=== PATIENT | male | born 1975 | race Two or more races ===

== ENCOUNTER 2021-01-02 18:34 | Inpatient (IN) | payer OTHER ==
[~2021-01-02] VITALS: Ht 167.6 cm; Wt 75.7 kg
[2021-01-02] MEDS ORDERED: ACETAMINOPHEN 325 MG TABLET PO PRN (19:45)
[2021-01-02] MEDS ORDERED: DOCU-275 PO (20:25)
[2021-01-02] MEDS ORDERED: LEVE500T53 PO (20:25)
[2021-01-02] MEDS ORDERED: METH-659 PO (20:25)
[2021-01-02 22:37] LABS: BASOPHILS % (AUTO) 0.9 % (0.0-2.0); EOSINOPHILS % (AUTO) 2.2 % (1.0-6.0); HEMATOCRIT 45.5 % (41-53); HEMOGLOBIN 15.2 g/dL (13.5-17.5); LYMPHOCYTES # (AUTO) 1.7 K/uL (1.0-4.8); MEAN CORPUSCULAR HEMOGLOBIN 27.4 pg (26.0-34.0); MEAN CORPUSCULAR HGB CONC 33.5 G/dL (31.0-37.0); MEAN CORPUSCULAR VOLUME 82 fL (80-100); MONOCYTES # (AUTO) 0.9 K/uL (0.1-1.0); MONOCYTES % (AUTO) 7.6 % (2.0-9.0); NEUTROPHILS # (AUTO) 8.4 K/uL (1.8-7.7); NEUTROPHILS % (AUTO) 74.3 % (40.0-70.0); PLATELET COUNT (AUTO) 514 K/uL (150-450); RED BLOOD CELL COUNT(AUTO) 5.56 MIL/uL (4.50-5.90); RED CELL DISTRIBUTION WIDTH 14.8 % (11.5-14.5)
[2021-01-02 22:45] LABS: ANION GAP 10 mmol/L (8-16); CALCIUM, TOTAL 9.7 mg/dL (8.8-10.5); CARBON DIOXIDE 29 mmol/L (22-29); CHLORIDE 97 mmol/L (98-107); CREATININE 0.92 mg/dL (0.60-1.30); GLOMERULAR FILTR. RATE CALC > 60 mL/min (>60); GLUCOSE,RANDOM 114 mg/dL (70-110); POTASSIUM 3.8 mmol/L (3.5-5.1); SODIUM SERUM 136 mmol/L (136-145); UREA NITROGEN, BLOOD 8 mg/dL (7-18)
[2021-01-02 22:49] LABS: D-DIMER 3.2 mg/L FEU (0.00-0.50)
[2021-01-02 22:51] LABS: ALANINE AMINOTRANSFERASE 128 U/L (12-78); ALKALINE PHOSPHATASE 167 U/L (46-116); ASPARTATE AMINOTRANSFERASE 77 U/L (15-37); BILIRUBIN,TOTAL 0.8 mg/dL (0.1-1.0)
[2021-01-02] MEDS ORDERED: ONDANSETRON HCL 4 MG/2 ML VIAL IVP PRN (23:30)
[2021-01-02] MEDS ORDERED: HEPARIN SODIUM 25000 UNITS/D5W 250 ML IV PRN (23:30)
[2021-01-02] MEDS ORDERED: HEPARIN SODIUM,PORCINE 5,000 UNITS/ML VIAL IVP PRN ×2 (23:30)
[2021-01-02] MEDS ORDERED: BENZONATATE 100 MG CAPSULE PO PRN (23:30)
[2021-01-02 23:44] LABS: PROTHROMBIN TIME 10.6 SEC (9.4-11.6)
[2021-01-03] VITALS: BP 127/80
[2021-01-03 00:26] LABS: BASOPHILS % (AUTO) 0.9 % (0.0-2.0); EOSINOPHILS % (AUTO) 3.2 % (1.0-6.0); HEMATOCRIT 44.1 % (41-53); HEMOGLOBIN 14.8 g/dL (13.5-17.5); LYMPHOCYTES # (AUTO) 1.9 K/uL (1.0-4.8); LYMPHOCYTES % (AUTO) 19.6 % (22.0-44.0); MEAN CORPUSCULAR HEMOGLOBIN 27.3 pg (26.0-34.0); MEAN CORPUSCULAR HGB CONC 33.4 G/dL (31.0-37.0); MEAN CORPUSCULAR VOLUME 82 fL (80-100); MONOCYTES # (AUTO) 0.8 K/uL (0.1-1.0); MONOCYTES % (AUTO) 8.1 % (2.0-9.0); NEUTROPHILS # (AUTO) 6.6 K/uL (1.8-7.7); NEUTROPHILS % (AUTO) 68.2 % (40.0-70.0); PLATELET COUNT (AUTO) 462 K/uL (150-450); RED BLOOD CELL COUNT(AUTO) 5.41 MIL/uL (4.50-5.90); RED CELL DISTRIBUTION WIDTH 14.8 % (11.5-14.5)
[2021-01-03] MEDS ORDERED: HEPARIN SODIUM,PORCINE 5,000 UNITS/ML VIAL IVP PRN ×2 (00:35)
[2021-01-03] MEDS ORDERED: KETOROLAC TROMETHAMINE 15 MG/ML VIAL IVP PRN (05:15)
[2021-01-03 05:55] VITALS: BP 113/73
[2021-01-03 06:24] LABS: EOSINOPHILS % (AUTO) 3.5 % (1.0-6.0); HEMATOCRIT 43.3 % (41-53); HEMOGLOBIN 14.5 g/dL (13.5-17.5); LYMPHOCYTES # (AUTO) 2.4 K/uL (1.0-4.8); MEAN CORPUSCULAR HEMOGLOBIN 27.7 pg (26.0-34.0); MEAN CORPUSCULAR HGB CONC 33.5 G/dL (31.0-37.0); MEAN CORPUSCULAR VOLUME 83 fL (80-100); MONOCYTES # (AUTO) 0.9 K/uL (0.1-1.0); NEUTROPHILS % (AUTO) 61.5 % (40.0-70.0); PLATELET COUNT (AUTO) 512 K/uL (150-450); RED BLOOD CELL COUNT(AUTO) 5.24 MIL/uL (4.50-5.90); RED CELL DISTRIBUTION WIDTH 14.8 % (11.5-14.5)
[2021-01-03] MEDS: METHOCARBAMOL 500 MG TABLET PO SCH ×4 (08:31→20:21)
[2021-01-03] MEDS: LevETIRAcetam 500 MG TABLET PO SCH ×2 (08:31→20:21)
[2021-01-03] MEDS: DOCUSATE SODIUM 100 MG CAPSULE PO SCH (08:31)
[2021-01-03 08:40] VITALS: BP 119/80
[2021-01-03] MEDS: ACETAMINOPHEN 325 MG TABLET PO PRN (09:17)
[2021-01-03] MEDS: APIXABAN 5 MG TABLET PO SCH ×2 (09:17→20:21)
[2021-01-03 19:59] VITALS: BP 126/86
[2021-01-03] MEDS: LORazepam 0.5 MG TABLET PO PRN (20:21)
[2021-01-03] MEDS: HYDROCODONE/ACETAMINOPHEN 5-325 MG TABLET PO PRN (20:22)
[2021-01-04] MEDS: HYDROCODONE/ACETAMINOPHEN 5-325 MG TABLET PO PRN (03:29)
[2021-01-04 05:35] VITALS: BP 92/56
[2021-01-04] MEDS ORDERED: SODIUM CHLORIDE 0.9% 500 ML IV ONE ×2 (05:45→05:46)
[2021-01-04 09:06] VITALS: BP 116/78
[2021-01-04] MEDS: APIXABAN 5 MG TABLET PO SCH ×2 (09:39→20:44)
[2021-01-04] MEDS: DOCUSATE SODIUM 100 MG CAPSULE PO SCH (09:39)
[2021-01-04] MEDS: LevETIRAcetam 500 MG TABLET PO SCH ×2 (09:39→20:44)
[2021-01-04] MEDS: METHOCARBAMOL 500 MG TABLET PO SCH ×4 (09:39→20:51)
[2021-01-04] MEDS: ACETAMINOPHEN 325 MG TABLET PO PRN (18:15)
[2021-01-04 20:35] VITALS: BP 104/72
[2021-01-04] MEDS: LORazepam 0.5 MG TABLET PO PRN (20:55)
[2021-01-05] MEDS: ACETAMINOPHEN 325 MG TABLET PO PRN ×2 (01:46→06:46)
[2021-01-05] MEDS: LORazepam 0.5 MG TABLET PO PRN (03:18)
[2021-01-05 05:14] VITALS: BP 119/68
[2021-01-05 06:28] LABS: ALANINE AMINOTRANSFERASE 95 U/L (12-78); ALBUMIN 3.8 g/dL (3.4-5.0); ALKALINE PHOSPHATASE 160 U/L (46-116); ANION GAP 11 mmol/L (8-16); ASPARTATE AMINOTRANSFERASE 37 U/L (15-37); BILIRUBIN,TOTAL 0.5 mg/dL (0.1-1.0); C-REACTIVE PROTEIN QUANT 1.87 mg/dL (0.00-0.30); CALCIUM, TOTAL 9.3 mg/dL (8.8-10.5); CARBON DIOXIDE 26 mmol/L (22-29); CHLORIDE 100 mmol/L (98-107); CREATININE 0.93 mg/dL (0.60-1.30); GLOMERULAR FILTR. RATE CALC > 60 mL/min (>60); GLUCOSE,RANDOM 119 mg/dL (70-110); POTASSIUM 3.9 mmol/L (3.5-5.1); SODIUM SERUM 137 mmol/L (136-145); TOTAL PROTEIN, SERUM 8.3 g/dL (6.4-8.2); UREA NITROGEN, BLOOD 11 mg/dL (7-18)
[2021-01-05 07:48] VITALS: BP 108/66
[2021-01-05] MEDS: APIXABAN 5 MG TABLET PO SCH (09:02)
[2021-01-05] MEDS: LevETIRAcetam 500 MG TABLET PO SCH (09:02)
[2021-01-05] MEDS: DOCUSATE SODIUM 100 MG CAPSULE PO SCH (09:02)
[2021-01-05] MEDS: METHOCARBAMOL 500 MG TABLET PO SCH (09:09)
[2021-01-05 09:25] LABS: GLUCOMETER DEV NAME(LOC) 6S.1; GLUCOSE,POINT OF CARE 121 MG/DL (70-110)
[2021-01-05 11:33] LABS: COVID AG,FIA SOURCE NASOPHARYNGEAL
== END 2021-01-05 13:50 | DRG 177 ==
LOC: EMS 18:43 → 6S 23:23 → EMS 01-03 00:06
PROVIDERS: ADMIT Internal Medicine; ATTEND Internal Medicine
DX: U07.1 COVID-19 (principal); J12.82 Pneumonia due to coronavirus disease 2019; S06.9X9A Unspecified intracranial injury with loss of consciousness of unspecified duration, initial encounter; D68.59 Other primary thrombophilia; R74.01 Elevation of levels of liver transaminase levels; F17.210 Nicotine dependence, cigarettes, uncomplicated; Z79.01 Long term (current) use of anticoagulants; Z79.899 Other long term (current) drug therapy
CPT/HCPCS: 71111; 80053; 82271; 82962; 85025; 85379; 85610; 85730; 86140; 87426; 93005; 99285; J1644; J2405; J7040